=== PATIENT | female | born 1950 | race Caucasian/White ===

== ENCOUNTER 2021-03-20 11:54 | Emergency (ER) | payer SELFPAY ==
--- NOTE | 2021-03-20 17:45 | ER ---
Nurse's Notes [facility] Name: Jessica Do Age: 70 yrs Sex: Female : 1950 Arrival Date: 03/20/2021 Time: 11:57 Bed External Waiting Private MD: Diagnosis: Presentation: 03/20 12:19 Chief complaint: Patient states: Abd swelling since Monday. Seeing a liver MD, ss nothing done recently. Coronavirus screen: Client denies travel out of the [place] in the last 14 days. At this time, the client does not indicate any symptoms associated with coronavirus-19. Ebola Screen: Patient denies travel to an Ebola-affected area in the 21 days before illness onset. Initial Sepsis Screen: Does the patient meet any 2 criteria? HR > 90 bpm. No. Patient's initial sepsis screen is negative. Does the patient have a suspected source of infection? Yes: Acute abdominal pain. Risk Assessment: Do you want to hurt yourself or someone else? Patient reports no desire to harm self or others. Onset of symptoms was March 17, 2021. 12:19 Method Of Arrival: Wheelchair ss 12:19 Acuity: JOSE 3 ss Triage Assessment: 12:22 General: Appears ill, Behavior is calm, cooperative, appropriate for age. Pain: ll1 Complains of pain in abdomen Quality of pain is described as aching, Aggravated by palpation. Neuro: No deficits noted. Cardiovascular: No deficits noted. Respiratory: No deficits noted. GI: Abdomen is round distended, Bowel sounds present X 4 quads. Abd is soft and non tender X 4 quads. Reports bloating, nausea. Historical: - Allergies: 12:22 No Known Allergies; ss - PMHx: 12:22 cirrhosis liver; polyps; ss - PSHx: 12:22 cataract repair; lymph node removal; ss - Immunization history:: Flu vaccine is not up to date. - Social history:: Smoking status: Patient denies any tobacco usage or history of. Vital Signs: 12:19 BP 117 / 61; Pulse 98; Resp 16; Temp 97.5; Pulse Ox 97% on R/A; Weight 54.43 kg; Height ss 5 ft. 5 in. (165.10 cm); Pain 4/10; 12:19 Body Mass Index 19.97 (54.43 kg, 165.10 cm) ED Course: 11:57 Patient arrived in ED. mr 12:22 Triage completed. 12:23 Arm band placed on. ss 17:34 Dionisio Orourke PA is PHCP. cp 17:34 Dionisio Urbano MD is Attending Physician. cp Administered Medications: No medications were administered Outcome: 17:40 Eloped from waiting room. ss 17:40 unknown 17:45 Patient left the ED. Signatures: Sejal Baca mr Caitlin Jensen, RN RN Dionisio Orourke PA PA cp Lewis, Lynsay, RN RN ll1
[2021-03-20 18:03] VITALS: BP 117/61; TEMP 97.5; O2SAT 97
== END 2021-03-20 17:45 | disposition left against medical advice (07) ==
LOC: ER 11:54
DX: Z53.21 Procedure and treatment not carried out due to patient leaving prior to being seen by health care provider (principal)
CPT/HCPCS: 99281